=== PATIENT | male | born 1950 | race Caucasian/White ===

== ENCOUNTER → 2017-11-01 | Outpatient (CLI) | payer BC | LOC: BMCIMAGING 13:50 | PROVIDERS: ATTEND Family Medicine | DX: M17.12 Unilateral primary osteoarthritis, left knee (principal) ==

== ENCOUNTER → 2018-01-19 | Outpatient (CLI) | payer BC | LOC: BMCIMAGING 12:37 | PROVIDERS: ATTEND Internal Medicine | DX: R05 Cough (principal); M51.34 Other intervertebral disc degeneration, thoracic region ==

== ENCOUNTER → 2018-02-22 | Outpatient (CLI) | payer BC | LOC: BMCIMAGING 13:11 | PROVIDERS: ATTEND Family Medicine | DX: M19.071 Primary osteoarthritis, right ankle and foot (principal) ==

== ENCOUNTER → 2018-12-13 | Outpatient (CLI) | payer BC | LOC: BMCIMAGING 10:07 | PROVIDERS: ATTEND Internal Medicine | DX: S92.355A Nondisplaced fracture of fifth metatarsal bone, left foot, initial encounter for closed fracture (principal); M19.072 Primary osteoarthritis, left ankle and foot; M25.872 Other specified joint disorders, left ankle and foot ==